=== PATIENT | female | born 1950 | race Caucasian/White ===

== ENCOUNTER → 2018-05-16 | Outpatient (REF) | payer MEDICARE ==
[~2018-05-16] MED LIST: ASTELIN NASA137 MCG; B-121000 MC1 PO; CELEBREX100 M1 PO; D32000 UNI1 PO; DOXYCYCL HYC100 MG PO; DYAZIDE1 CAP PO; FLEXERIL5 M1 PO; FLONASE NASAL50 MCG; OMEGA-3 FISH1000 MG PO; PREDNISONE20 MG PO; PREMARIN0.625 MG PO; TRAMADOL HCL50 MG PO; TRICOR145 MG PO; ZOCOR10 MG PO
[2018-05-16 10:19] LABS: HEMATOCRIT 36.8 % (37.0-47.0); HEMOGLOBIN 11.9 g/dl (12.0-16.0); IMMATURE GRANULOCYTES 0.6 % (0.0-5.0); MEAN CELL VOLUME 94.6 fL CALC (80.0-100.0); MEAN CORPUSCULAR HGB 30.6 pG CALC (26.0-32.0); MEAN CORPUSCULAR HGB CONC 32.3 g/L CALC (32.0-36.0); NEUT# 4.65 thou/uL (2.00-7.15); RED BLOOD COUNT 3.89 mill/uL (4.20-5.60)
[2018-05-16 10:46] LABS: ALBUMIN 3.6 g/dL (3.2-5.0); ALKALINE PHOSPHATASE 51 u/l (38-126); BILIRUBIN, TOTAL 0.6 mg/dL (0.0-1.4); C-REACTIVE PROTEIN < 0.5 mg/dL (0-0.9); CREATININE 0.8 mg/dL (0.5-1.0); SGOT/AST 23 u/l (9-36); TOTAL PROTEIN 6.2 g/dL (6.3-8.2)
== END | disposition home or self-care (01) ==
LOC: LAB 08:50
PROVIDERS: ATTEND Internal Medicine Rheumatology
DX: M06.09 Rheumatoid arthritis without rheumatoid factor, multiple sites (principal); Z79.899 Other long term (current) drug therapy

== ENCOUNTER → 2018-05-29 | Outpatient (REF) | payer MEDICARE | END | disposition home or self-care (01) | LOC: BD 09:45 | PROVIDERS: ATTEND Internal Medicine | DX: N95.1 Menopausal and female climacteric states (principal) ==

== ENCOUNTER 2022-03-02 09:09 | Emergency (ER) | payer MEDICARE ==
[~2022-03-02] VITALS: Ht 157.5 cm; Wt 96.0 kg
[~2022-03-02 09:09] MED LIST changes: +AZELASTINE0.1 %; +BIOTIN EXTR10000 MCG MT; +CLINDAMYCIN HY300 MG; -DYAZIDE1 CAP PO; +FOLIC ACID1 M1; +LIPITOR10 M1 PO; +LYRICA100 MG PO; +MAXZIDE PO; +METFORMIN500 M1 PO; +METHOTREXA50 MG/2 M2 IM; +MULTI COMPLETE PO; +OMEPRAZOLE DR40 MG MT; +POTASSIUM CHLO20 MEQ PO; +PROAIR HFA108 MCG/AC; +SINGULAIR10 MG PO; +TYLENOL 8 HOUR650 MG; +[UNRECOGNIZED DRUG - OTHER]
[2022-03-02 09:18] VITALS: BP 131/82
[2022-03-02] MEDS ORDERED: HYDROXYCHLOR200 M1 PO (09:21)
[2022-03-02] MEDS ORDERED: BUPROPION150 M3 PO (09:25)
[2022-03-02] MEDS ORDERED: MAGNESIUM500 M1 PO (09:26)
[2022-03-02] MEDS ORDERED: ADVAIR DISK1 IN (09:27)
[2022-03-02] MEDS ORDERED: CLARITIN10 M2 PO (09:28)
[2022-03-02 09:30] VITALS: BP 117/74
[2022-03-02] MEDS ORDERED: COLCHICINE0.6 M2 PO (09:32)
[2022-03-02] MEDS ORDERED: PREDNISONE10 MG PO (09:33)
[2022-03-02 09:45] VITALS: BP 121/80
[2022-03-02 10:00] VITALS: BP 133/83
[2022-03-02 10:16] VITALS: BP 154/94
[2022-03-02 10:25] LABS: HEMATOCRIT 39.9 % (37.0-47.0); IMMATURE GRANULOCYTES 0.2 % (0.0-5.0); MEAN CORPUSCULAR HGB 28.9 pG CALC (26.0-32.0); MEAN CORPUSCULAR HGB CONC 33.1 g/dL CAL (32.0-36.0); NEUT# 6.83 thou/uL (2.00-7.15); RED BLOOD COUNT 4.57 mill/uL (4.20-5.60); RED CELL DISTRI WIDTH 16.1 % (11.5-15.5)
[2022-03-02 10:26] LABS: HEMOGLOBIN 13.2 g/dl (12.0-16.0); MEAN CELL VOLUME 87.3 fL CALC (80.0-100.0)
[2022-03-02 10:34] LABS: ALBUMIN 4.2 g/dL (3.2-5.0); ALKALINE PHOSPHATASE 72 u/l (38-126); AMYLASE 109 u/l (30-110); ANION GAP 13 (6-22 (CALC)); BUN 16 mg/dL (8-23); BUN/CREATININE RATIO 22 (12-20 (CALC)); CARBON DIOXIDE 34 mmol/l (22-30); CHLORIDE 99 mmol/l (95-108); CREATININE 0.7 mg/dL (0.5-1.0); GFR FOR AFR.AMER. > 60 ML/MIN (>=60 (CALC)); GFR OTHER RACES > 60 ML/MIN (>=60 (CALC)); LIPASE 130 u/l (23-300); POTASSIUM 4.2 mmol/l (3.5-5.1); SGOT/AST 31 u/l (9-36); SODIUM 142 mmol/l (137-146); TOTAL PROTEIN 7.1 g/dL (6.3-8.2)
[2022-03-02 10:37] LABS: BILIRUBIN, TOTAL 0.9 mg/dL (0.0-1.4)
[2022-03-02] MEDS ORDERED: ULTRAM50 MG PO (13:08)
[2022-03-02] MEDS ORDERED: METRONIDAZOLE500 MG PO (13:08)
[2022-03-02] MEDS ORDERED: CIPROFLOXACN500 MG PO (13:08)
[2022-03-02 15:53] VITALS: BP 154/94
== END 2022-03-02 15:53 | disposition home or self-care (01) ==
LOC: ED 09:09
PROVIDERS: Emergency Medicine
DX: K57.32 Diverticulitis of large intestine without perforation or abscess without bleeding (principal); I10 Essential (primary) hypertension
CPT/HCPCS: Q9967